=== PATIENT | male | born 1960 | race Hispanic/Latino ===

== ENCOUNTER 2017-06-03 09:31 | Emergency (ER) | payer SELFPAY ==
[2017-06-03] MEDS ORDERED: Fluorescein Opthalmic Strip ONE (12:21)
[2017-06-03] MEDS ORDERED: Proparacaine 0.5% Opth 15 ML BOT ONE (12:21)
== END 2017-06-03 12:51 | disposition home or self-care (01) ==
LOC: ERS 09:31
DX: T15.02XA Foreign body in cornea, left eye, initial encounter (principal); Y93.E9 Activity, other interior property and clothing maintenance; Y99.0 Civilian activity done for income or pay
CPT/HCPCS: 65220